=== PATIENT | female | born 1995 | race Caucasian/White ===

== ENCOUNTER 2016-09-27 13:56 | Emergency (ER) | payer MEDICAID ==
[2016-09-27] MEDS ORDERED: Sodium Chloride 0.9% 1,000 ML IV ONE (14:57)
[2016-09-27] MEDS ORDERED: Sodium Chloride 0.9% 2.5 ML Syringe FLUSH PRN (14:58)
[2016-09-27] MEDS ORDERED: Sodium Chloride 0.9% 10 ML Syringe FLUSH PRN (14:58)
--- NOTE | 2016-09-27 15:10 | EDM.PDOC ---
ED HPI GI/ABDOMINAL - General Chief Complaint: Abdominal Pain Stated Complaint: LOWER ABD PAIN Time Seen by Provider: 09/27/16 14:07 Source of Information: Reports: Patient History Limitations: Reports: No limitations - History of Present Illness INITIAL COMMENTS - FREE TEXT/NARRATIVE: History of present illness: [] Patient's had a 4 to five-day history of nonradiating sharp and dull right lower quadrant pain. Patient denies any fevers, chills, nausea, vomiting or diarrhea. Review of systems: As per history of present illness and below otherwise all systems reviewed and negative. Past medical history: As per history of present illness and as reviewed below otherwise noncontributory. Surgical history: As per history of present illness and as reviewed below otherwise noncontributory. Social history: No reported history of drug or alcohol abuse. Family history: As per history of present illness and as reviewed below otherwise noncontributory. Physical exam: General: Well developed, well nourished in NAD HEENT: Atraumatic, normocephalic, pupils reactive, negative for conjunctival pallor or scleral icterus, mucous membranes moist, throat clear, neck supple, nontender, trachea midline. Lungs: Clear to auscultation, breath sounds equal bilaterally, chest nontender. Heart: S1S2, regular, negative for clicks, rubs, or JVD. Abdomen: Soft, nondistended, tender right lower quadrant without rebound or guarding. Negative for masses or hepatosplenomegaly. Negative for costovertebral tenderness. Pelvis: Stable nontender. Genitourinary: Deferred. Rectal: Deferred. Extremities: Atraumatic, negative for cords or calf pain. Neurovascular unremarkable. Neuro: Awake, alert, oriented. Cranial nerves II through XII unremarkable. Cerebellum unremarkable. Motor and sensory unremarkable throughout. Exam nonfocal. Diagnostics: [] Labs and CT done were negative Therapeutics: [] Impression: [] Abdominal pain NOS Plan: [] Tylenol or Motrin for pain warm packs to abdomen followup with regular doctor return if symptoms worsen or change Definitive disposition and diagnosis as appropriate pending reevaluation and review of above. 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: - Past Surgical History HEENT Surgical History: Reports: Adenoidectomy, Tonsillectomy Social & Family History - Family History Family Medical History: Noncontributory Endocrine/Metabolic: Reports: Diabetes, type II Oncologic: Reports: Breast, Cervix, Other (see below) Other Oncologic Family History: unknown - Tobacco Use Smoking Status *Q: Never Smoker Second Hand Smoke Exposure: Yes - Alcohol Use Days Per Week of Alcohol Use: 0 - Recreational Drug Use Recreational Drug Use: No ED ROS GENERAL - Review of Systems Review Of Systems: See Below (See history of present illness) ED EXAM, GI/ABD - Physical Exam Exam: See Below (See history of present illness) Course - Vital Signs Last Recorded V/S: Last Vital Signs Temp 36.6 C 09/27/16 14:44 Pulse 88 09/27/16 14:44 Resp 18 09/27/16 14:44 BP 105/76 09/27/16 14:44 Pulse Ox 98 09/27/16 14:44 - Orders/Labs/Meds Orders: Active Orders 24 hr Category Date Time Status Nothing Per Oral Diet [DIET] Diet 09/27/16 Dinner Active Abdomen Pelvis w Cont [CT] Stat Exams 09/27/16 15:46 Taken Sodium Chloride 0.9% [Saline Flush] Med 09/27/16 14:58 Active 10 ml FLUSH ASDIRECTED PRN Sodium Chloride 0.9% [Saline Flush] Med 09/27/16 14:58 Active 2.5 ml FLUSH ASDIRECTED PRN Peripheral IV Insertion Adult [OM.PC] Stat Oth 09/27/16 14:57 Ordered Medication Orders Sodium Chloride (Saline Flush) 10 ml FLUSH ASDIRECTED PRN PRN Reason: Keep Vein Open Last Admin: 09/27/16 15:13 Dose: 10 ml Sodium Chloride (Saline Flush) 2.5 ml FLUSH ASDIRECTED PRN PRN Reason: Keep Vein Open Last Admin: 09/27/16 15:13 Dose: 2.5 ml Labs: Laboratory Tests 09/27/16 09/27/16 09/27/16 Range/Units 15:00 15:00 15:05 WBC 9.45 (4.0-11.0) K/uL RBC 4.80 (4.30-5.90) M/uL Hgb 14.2 (12.0-16.0) g/dL Hct 42.4 (36.0-46.0) % MCV 88.3 (80.0-98.0) fL MCH 29.6 (27.0-32.0) pg MCHC 33.5 (31.0-37.0) g/dL RDW Std Deviation 41.6 (28.0-62.0) fl RDW Coeff of Damari 13 (11.0-15.0) % Plt Count 249 (150-400) K/uL MPV 10.70 (7.40-12.00) fL Neut % (Auto) 59.9 (48.0-80.0) % Lymph % (Auto) 33.1 (16.0-40.0) % [place] % (Auto) 6.0 (0.0-15.0) % Eos % (Auto) 0.8 (0.0-7.0) % Baso % (Auto) 0.2 (0.0-1.5) % Neut # (Auto) 5.7 (1.4-5.7) K/uL Lymph # (Auto) 3.1 H (0.6-2.4) K/uL [place] # (Auto) 0.6 (0.0-0.8) K/uL Eos # (Auto) 0.1 (0.0-0.7) K/uL Baso # (Auto) 0.0 (0.0-0.1) K/uL Nucleated RBC % 0.0 /100WBC Nucleated RBCs # 0 K/uL Sodium (136-146) mmol/L Potassium (3.5-5.1) mmol/L Chloride (98-110) mmol/L Carbon Dioxide (21-31) mmol/L BUN (6.0-23.0) mg/dL Creatinine (0.6-1.5) mg/dL Est Cr Clr Drug Dosing mL/min Estimated GFR (MDRD) ml/min Glucose (60-110) mg/dL Calcium (8.8-10.8) mg/dL Total Bilirubin (0.1-1.5) mg/dL AST (5-40) IU/L ALT (8-54) IU/L Alkaline Phosphatase (40-150) Total Protein (6.0-8.0) g/dL Albumin (3.5-5.0) g/dL Globulin (2.0-3.5) g/dL Albumin/Globulin Ratio (1.3-2.8) Lipase (7-80) U/L Urine Color YELLOW Urine Appearance CLEAR Urine pH 7.5 (5.0-8.0) Ur Specific [place] 1.015 (1.001-1.035) Urine Protein NEGATIVE (NEGATIVE) mg/dL Urine Glucose (UA) NEGATIVE (NEGATIVE) mg/dL Urine Ketones NEGATIVE (NEGATIVE) mg/dL Urine Occult Blood NEGATIVE (NEGATIVE) Urine Nitrite NEGATIVE (NEGATIVE) Urine Bilirubin NEGATIVE (NEGATIVE) Urine Urobilinogen 0.2 (<2.0) EU/dL Ur Leukocyte Esterase TRACE (NEGATIVE) Urine RBC 0-1 (0-2/HPF) Urine WBC 2-3 (0-5/HPF) Ur Epithelial Cells FEW (NONE-FEW) Urine Bacteria FEW (NEGATIVE) Urine HCG, Qual NEGATIVE (NEGATIVE) 09/27/16 Range/Units 15:05 WBC (4.0-11.0) K/uL RBC (4.30-5.90) M/uL Hgb (12.0-16.0) g/dL Hct (36.0-46.0) % MCV (80.0-98.0) fL MCH (27.0-32.0) pg MCHC (31.0-37.0) g/dL RDW Std Deviation (28.0-62.0) fl RDW Coeff of Damari (11.0-15.0) % Plt Count (150-400) K/uL MPV (7.40-12.00) fL Neut % (Auto) (48.0-80.0) % Lymph % (Auto) (16.0-40.0) % [place] % (Auto) (0.0-15.0) % Eos % (Auto) (0.0-7.0) % Baso % (Auto) (0.0-1.5) % Neut # (Auto) (1.4-5.7) K/uL Lymph # (Auto) (0.6-2.4) K/uL [place] # (Auto) (0.0-0.8) K/uL Eos # (Auto) (0.0-0.7) K/uL Baso # (Auto) (0.0-0.1) K/uL Nucleated RBC % /100WBC Nucleated RBCs # K/uL Sodium 140 (136-146) mmol/L Potassium 4.0 (3.5-5.1) mmol/L Chloride 106 (98-110) mmol/L Carbon Dioxide 24 (21-31) mmol/L BUN 10 (6.0-23.0) mg/dL Creatinine 0.8 (0.6-1.5) mg/dL Est Cr Clr Drug Dosing 100.94 mL/min Estimated GFR (MDRD) > 60.0 ml/min Glucose 92 (60-110) mg/dL Calcium 9.5 (8.8-10.8) mg/dL Total Bilirubin 0.4 (0.1-1.5) mg/dL AST 34 (5-40) IU/L ALT 40 (8-54) IU/L Alkaline Phosphatase 87 (40-150) Total Protein 7.6 (6.0-8.0) g/dL Albumin 4.1 (3.5-5.0) g/dL Globulin 3.5 (2.0-3.5) g/dL Albumin/Globulin Ratio 1.2 L (1.3-2.8) Lipase 24 (7-80) U/L Urine Color Urine Appearance Urine pH (5.0-8.0) Ur Specific [place] (1.001-1.035) Urine Protein (NEGATIVE) mg/dL Urine Glucose (UA) (NEGATIVE) mg/dL Urine Ketones (NEGATIVE) mg/dL Urine Occult Blood (NEGATIVE) Urine Nitrite (NEGATIVE) Urine Bilirubin (NEGATIVE) Urine Urobilinogen (<2.0) EU/dL Ur Leukocyte Esterase (NEGATIVE) Urine RBC (0-2/HPF) Urine WBC (0-5/HPF) Ur Epithelial Cells (NONE-FEW) Urine Bacteria (NEGATIVE) Urine HCG, Qual (NEGATIVE) Meds: Medications Generic Name Dose Route Start Last Admin Trade Name Freq PRN Reason Stop Dose Admin Sodium Chloride 10 ml 09/27/16 14:58 09/27/16 15:13 Saline Flush FLUSH 10 ml ASDIRECTED PRN Administration Keep Vein Open Sodium Chloride 2.5 ml 09/27/16 14:58 09/27/16 15:13 Saline Flush FLUSH 2.5 ml ASDIRECTED PRN Administration Keep Vein Open Discontinued Medications Generic Name Dose Route Start Last Admin Trade Name Osmani PRN Reason Stop Dose Admin Sodium Chloride 1,000 mls @ 999 mls/hr 09/27/16 14:57 09/27/16 15:13 Normal Saline IV 09/27/16 15:57 999 mls/hr .Bolus ONE Administration Iopamidol 100 ml 09/27/16 15:51 09/27/16 15:54 Isovue Multipack-370 (76%) IVPUSH 09/27/16 15:52 100 ml ONETIME STA Administration Departure - Departure Time of Disposition: 16:47 Disposition: Home, Self-Care 01 Condition: good Clinical Impression: Abdominal pain Qualifiers: Abdominal location: right lower quadrant Qualified Code(s): R10.31 - Right lower quadrant pain Forms: ED Department Discharge Additional Instructions: The following information is given to patients seen in the emergency department who are being discharged to home. This information is to outline your options for follow-up care. We provide all patients seen in our emergency department with a follow-up referral. The need for follow-up, as well as the timing and circumstances, are variable depending upon the specifics of your emergency department visit. If you don't have a primary care physician on staff, we will provide you with a referral. We always advise you to contact your personal physician following an emergency department visit to inform them of the circumstance of the visit and for follow-up with them and/or the need for any referrals to a consulting specialist. The emergency department will also refer you to a specialist when appropriate. This referral assures that you have the opportunity for follow-up care with a specialist. All of these measure are taken in an effort to provide you with optimal care, which includes your follow-up. Under all circumstances we always encourage you to contact your private physician who remains a resource for coordinating your care. When calling for follow-up care, please make the office aware that this follow-up is from your recent emergency room visit. If for any reason you are refused follow-up, please contact the [facility] Emergency Department at and asked to speak to the emergency department charge nurse. Tylenol or Motrin for pain return if symptoms worsen or change follow up with your regular doctor next week [facility] [address] [place] [id number] - My Orders Last 24 Hours: My Active Orders 09/27/16 14:57 Peripheral IV Insertion Adult [OM.PC] Stat 09/27/16 14:58 Sodium Chloride 0.9% [Saline Flush] 10 ml FLUSH ASDIRECTED PRN Sodium Chloride 0.9% [Saline Flush] 2.5 ml FLUSH ASDIRECTED PRN 09/27/16 15:46 Abdomen Pelvis w Cont [CT] Stat 09/27/16 Dinner Nothing Per Oral Diet [DIET] - Assessment/Plan Last 24 Hours: My Active Orders 09/27/16 14:57 Peripheral IV Insertion Adult [OM.PC] Stat 09/27/16 14:58 Sodium Chloride 0.9% [Saline Flush] 10 ml FLUSH ASDIRECTED PRN Sodium Chloride 0.9% [Saline Flush] 2.5 ml FLUSH ASDIRECTED PRN 09/27/16 15:46 Abdomen Pelvis w Cont [CT] Stat 09/27/16 Dinner Nothing Per Oral Diet [DIET]
[2016-09-27 15:34] LABS: CHLORIDE,CL 106 mmol/L (98-110); SODIUM,NA 140 mmol/L (136-146)
[2016-09-27] MEDS ORDERED: Iopamidol 755 MG/ML 500 ML Multipack Bottle IVPUSH STA (15:51)
[2016-09-27 17:00] VITALS: BP 109/71
--- NOTE | 2016-09-30 09:37 | CT ---
EXAM DATE: 09/27/16 PATIENT'S AGE: 21 Patient: DIEGO SILVER Facility: [place], [place] Site . Site : 1995 Study: CT Abdomen/Pelvis [id number]/14/2017 4:18:29 PM Ordering Physician: Thien Omer Final Report: INDICATION: RLQ PAIN X [address] ABDOMEN AND PELVIS WITH CONTRAST TECHNIQUE: Multidetector CT imaging was performed through the abdomen and pelvis following intravenous contrast administration using 100 mL Isovue 370. Coronal and sagittal reconstructions were generated. COMPARISON: None. FINDINGS: Lower chest: Lung bases are clear. Liver: Within normal limits. Gallbladder and bile ducts: No gallbladder wall thickening or calcified gallstones. No biliary dilation identified. Pancreas: Unremarkable. Spleen: Normal. Adrenals: No nodules or masses. Kidneys, ureters, and urinary bladder: No renal masses or hydronephrosis. No bladder mass or definite wall thickening. Gastrointestinal tract: Normal caliber bowel without obstruction or definite wall thickening. The appendix is normal. Vascular structures: Normal for age. Peritoneum: Minimal free fluid in the lower pelvis, most likely physiologic. No free air identified in the abdomen or pelvis. Lymph nodes: No pathologically enlarged nodes identified. Reproductive organs: No pelvic masses. Bones: Unremarkable aside from chronic bilateral pars defects of L5, without spondylolisthesis. IMPRESSION: 1. No definite acute abnormality identified. No cause for the patient`s symptoms is demonstrated. 2. Minimal free fluid in the lower pelvis, likely physiologic. BLAIR GIRALDO MD [employer] Dictated by Babatunde Giraldo MD @ 09/27/2016 4:30:45 PM Dictated by: Babatunde Giraldo MD @ 09/27/2016 16:31:27 (Electronic Signature) Report Signed by Proxy and Original Signed Document filed in the Medical Record. [facility]
== END 2016-09-27 16:59 | disposition home or self-care (01) ==
LOC: MW.ED 13:56
DX: R10.31 Right lower quadrant pain (principal); Z98.890 Other specified postprocedural states
CPT/HCPCS: 36415; 74177; 80053; 81001; 81025; 83690; 85025; 96360; 99284; J7040; Q9967; 99283

== ENCOUNTER 2017-11-30 21:26 | Inpatient (IN) | payer BC ==
[2017-11-30] MEDS ORDERED: Butorphanol 1 MG/ML SDV IVPUSH PRN (23:18)
[2017-11-30] MEDS ORDERED: Sodium Chloride 0.9% 2.5 ML Syringe FLUSH PRN (23:18)
[2017-11-30] MEDS ORDERED: Tranexamic Acid 1,000 MG in Sodium Chloride 0.9% 100 ML IV PRN (23:18)
[2017-11-30] MEDS ORDERED: Misoprostol 200 MCG Tab PO PRN (23:18)
[2017-11-30] MEDS ORDERED: Lidocaine 1% 50 ML MDV INJECT PRN (23:18)
[2017-11-30] MEDS ORDERED: Water For Irrigation,Sterile 1,000 ML Container IRR PRN (23:18)
[2017-11-30] MEDS ORDERED: Methylergonovine 0.2 MG/1 ML Amp IM PRN (23:18)
[2017-11-30] MEDS ORDERED: Carboprost Tromethamine 250 MCG/1 ML Amp IM PRN (23:18)
[2017-11-30] MEDS ORDERED: Nalbuphine 10 MG/1 ML Vial IVPUSH PRN (23:18)
[2017-11-30] MEDS ORDERED: Sodium Chloride 0.9% 10 ML Syringe FLUSH PRN (23:18)
[2017-11-30] MEDS ORDERED: Oxytocin/0.9 % Sodium Chloride 30 UNIT/500 ML BAG IV SCH (23:30)
[2017-12-01] MEDS: Lactated Ringers 1,000 ML IV SCH ×2 (00:27→01:35)
[2017-12-01] MEDS ORDERED: Ropivacaine HCl/PF 100 ML ONE (01:07)
[2017-12-01] MEDS ORDERED: fentaNYL 100 MCG/2 ML SDV ONE (01:07)
--- NOTE | 2017-12-01 01:34 | PCM.PREANE ---
Preanesthetic Assessment - Anesthesia/Transfusion/Family Hx Anesthesia History: Prior Anesthesia Without Reaction Family History of Anesthesia Reaction: No Transfusion History: No Prior Transfusion(s) - Physical Assessment Height: 1.65 m Weight: 90.718 kg ASA Class: 1 Mental Status: Alert & Oriented x3 Dentition: Reports: Normal Dentition ROM/Head Extension: Full Cardiovascular: Regular Rate - Lab Values: Laboratory Last Values WBC 12.68 K/uL (4.0-11.0) H 12/01/17 00:13 RBC 3.91 M/uL (4.30-5.90) L 12/01/17 00:13 Hgb 10.8 g/dL (12.0-16.0) L 12/01/17 00:13 Hct 32.9 % (36.0-46.0) L 12/01/17 00:13 MCV 84.1 fL (80.0-98.0) 12/01/17 00:13 MCH 27.6 pg (27.0-32.0) 12/01/17 00:13 MCHC 32.8 g/dL (31.0-37.0) 12/01/17 00:13 RDW Std Deviation 39.9 fl (28.0-62.0) 12/01/17 00:13 RDW Coeff of Damari 13 % (11.0-15.0) 12/01/17 00:13 Plt Count 204 K/uL (150-400) 12/01/17 00:13 MPV 11.00 fL (7.40-12.00) 12/01/17 00:13 Nucleated RBC % 0.0 /100WBC 12/01/17 00:13 Nucleated RBCs # 0 K/uL 12/01/17 00:13 Blood Type AB POSITIVE 12/01/17 00:13 Antibody Screen NEGATIVE 12/01/17 00:13 - Allergies Allergies/Adverse Reactions: Allergies Allergy/AdvReac Type Severity Reaction Status Date / Time No Known Allergies Allergy Verified 11/20/17 09:55 - Acknowledgements Anesthesia Type Planned: Epidural Pt an Appropriate Candidate for the Planned Anesthesia: Yes Alternatives and Risks of Anesthesia Discussed w Pt/Guardian: Yes Pt/Guardian Understands and Agrees with Anesthesia Plan: Yes PreAnesthesia Questionnaire - Past Health History Medical/Surgical History: Denies Medical/Surgical History Cardiovascular History: Reports: Heart Murmur Other Cardiovascular History: As a child but has since resolved. 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 HEENT Surgical History: Reports: Adenoidectomy, Tonsillectomy - SUBSTANCE USE Smoking Status *Q: Former Smoker Tobacco Use Within Last Twelve Months: No Second Hand Smoke Exposure: No Recreational Drug Use History: No - HOME MEDS Home Medications: Home Meds Levothyroxine [Synthroid] 88 mcg PO ACBREAKFAST 09/27/16 [History] PNV95/Ferrous Fumarate/FA [ Tablet] 1 tab PO DAILY 11/20/17 [History] - CURRENT (IN HOUSE) MEDS Current Meds: Current Medications Butorphanol Tartrate (Stadol) 1 mg IVPUSH Q1H PRN PRN Reason: Pain Last Admin: 12/01/17 01:04 Dose: 1 mg Carboprost Tromethamine (Hemabate Ds) 250 mcg IM ASDIRECTED PRN PRN Reason: Post Hemorrhage Tranexamic Acid 1,000 mg/ (Sodium Chloride) 110 mls @ 660 mls/hr IV ONETIME PRN PRN Reason: Bleeding Lactated Ringer's (Ringers, Lactated) 1,000 mls @ 150 mls/hr IV ASDIRECTED DONATO Last Admin: 12/01/17 00:27 Dose: 500 mls/hr Oxytocin/Sodium Chloride (Oxytocin 30 Unit/500 Ml-Ns) 30 unit in 500 mls @ 999 mls/hr IV TITRATE DONATO Lidocaine HCl (Xylocaine 1%) 50 ml INJECT .ONCE PRN PRN Reason: Laceration repair Methylergonovine Maleate (Methergine) 0.2 mg IM ASDIRECTED PRN PRN Reason: Post Hemorrhage Misoprostol (Cytotec) 200 mcg PO .ONCE PRN PRN Reason: Post Hemorrhage Nalbuphine HCl (Nubain) 10 mg IVPUSH Q1H PRN PRN Reason: Pain (severe 7-10) Sodium Chloride (Saline Flush) 10 ml FLUSH ASDIRECTED PRN PRN Reason: Keep Vein Open Sodium Chloride (Saline Flush) 2.5 ml FLUSH ASDIRECTED PRN PRN Reason: Keep Vein Open Sterile Water (Sterile Water For Irrigation) 1,000 ml IRR ASDIRECTED PRN PRN Reason: delivery Discontinued Medications Fentanyl (Sublimaze) Confirm Administered Dose 100 mcg .ROUTE .STK-MED ONE Stop: 12/01/17 01:08 Ropivacaine (Naropin 0.2%) Confirm Administered Dose 100 mls @ as directed .ROUTE .STK-MED ONE Stop: 12/01/17 01:08
--- NOTE | 2017-12-01 01:37 | PCM.PRNOTE ---
- Free Text/Narrative Note: Anes Note Patient requests epidural for L&D. Risks and methods were discussed. Sitting Position. Sterile technique. Bet prep X 3 Level L2-L3. Midline Approach. Single attempt. Epidural space located at 5 cm using VALERIE technique. Cathreaded 4 cm with ease. Sterile dressing applied. Cath placed at 9 cm at skin. Farhan well. Test dose negative. Loading dose given slowly in incremental doses. Patient reports excellent analgesia. Ernst Collazo CRNA
[2017-12-01] MEDS ORDERED: Bisacodyl 10 MG Supp RECTAL PRN (03:43)
[2017-12-01] MEDS ORDERED: Docusate Sodium 100 MG Cap PO PRN (03:43)
[2017-12-01] MEDS ORDERED: Ibuprofen 400 MG Tab PO PRN (03:43)
[2017-12-01] MEDS ORDERED: Witch Hazel Medicated Pads 40/Jar TOP PRN (03:43)
[2017-12-01] MEDS ORDERED: Lanolin 100% Cream 7 GM Tube TOP PRN (03:43)
[2017-12-01] MEDS ORDERED: Acetaminophen 500 MG Tab PO PRN ×2 (03:43)
[2017-12-01] MEDS ORDERED: Benzocaine/Menthol 20%-0.5% Spray 78 GM Cannister TOP PRN (03:43)
[2017-12-01] MEDS ORDERED: oxyCODONE 5 MG Tab PO PRN (03:43)
--- NOTE | 2017-12-01 03:56 | PCM.DEL ---
L & D Note - General Info Date of Service: 12/01/17 - Delivery Note Labor: Spontaneous, Augmented by ARM Delivery Outcome: Livebirth Infant Delivery Mode: Spontaneous Nuchal Cord: Present, Reduced Prep: Other Anesthesia Type: Epidural Amniotic Fluid Description: Meconium Stained Episiotomy Type: None Laceration: None Placenta: Intact, Spontaneous Cord: 3 Vessels Estimated Blood Loss: 150 [place]: Warmed, Warmer Used Score 1 min: 8 Score 5 min: 9 Second Stage Interventions: Reports: Encouragement Given, Pushing Effectively, Pushing, Pulls Own Legs Back - General Info Date of Service: 12/01/17 - Patient Data Weight - Most Recent: 199 lb 15.983 oz Lab Results Last 24 Hours: Laboratory Results - last 24 hr 12/01/17 12/01/17 Range/Units 00:13 00:13 WBC 12.68 H (4.0-11.0) K/uL RBC 3.91 L (4.30-5.90) M/uL Hgb 10.8 L (12.0-16.0) g/dL Hct 32.9 L (36.0-46.0) % MCV 84.1 (80.0-98.0) fL MCH 27.6 (27.0-32.0) pg MCHC 32.8 (31.0-37.0) g/dL RDW Std Deviation 39.9 (28.0-62.0) fl RDW Coeff of Damari 13 (11.0-15.0) % Plt Count 204 (150-400) K/uL MPV 11.00 (7.40-12.00) fL Nucleated RBC % 0.0 /100WBC Nucleated RBCs # 0 K/uL Blood Type AB POSITIVE Antibody Screen NEGATIVE Med Orders - Current: Current Medications Discontinued Medications Butorphanol Tartrate (Stadol) 1 mg IVPUSH Q1H PRN PRN Reason: Pain Last Admin: 12/01/17 01:04 Dose: 1 mg Carboprost Tromethamine (Hemabate Ds) 250 mcg IM ASDIRECTED PRN PRN Reason: Post Hemorrhage Fentanyl (Sublimaze) Confirm Administered Dose 100 mcg .ROUTE .STK-MED ONE Stop: 12/01/17 01:08 Tranexamic Acid 1,000 mg/ (Sodium Chloride) 110 mls @ 660 mls/hr IV ONETIME PRN PRN Reason: Bleeding Lactated Ringer's (Ringers, Lactated) 1,000 mls @ 150 mls/hr IV ASDIRECTED [facility] Last Admin: 12/01/17 01:35 Dose: 500 mls/hr Oxytocin/Sodium Chloride (Oxytocin 30 Unit/500 Ml-Ns) 30 unit in 500 mls @ 999 mls/hr IV TITRATE [facility] Ropivacaine (Naropin 0.2%) Confirm Administered Dose 100 mls @ as directed .ROUTE .K-MED ONE Stop: 12/01/17 01:08 Lidocaine HCl (Xylocaine 1%) 50 ml INJECT .ONCE PRN PRN Reason: Laceration repair Methylergonovine Maleate (Methergine) 0.2 mg IM ASDIRECTED PRN PRN Reason: Post Hemorrhage Misoprostol (Cytotec) 200 mcg PO .ONCE PRN PRN Reason: Post Hemorrhage Nalbuphine HCl (Nubain) 10 mg IVPUSH Q1H PRN PRN Reason: Pain (severe 7-10) Sodium Chloride (Saline Flush) 10 ml FLUSH ASDIRECTED PRN PRN Reason: Keep Vein Open Sodium Chloride (Saline Flush) 2.5 ml FLUSH ASDIRECTED PRN PRN Reason: Keep Vein Open Sterile Water (Sterile Water For Irrigation) 1,000 ml IRR ASDIRECTED PRN PRN Reason: delivery - Problem List & Annotations (1) Vaginal delivery SNOMED Code(s): 543423424 Code(s): O80 - ENCOUNTER FOR FULL-TERM UNCOMPLICATED DELIVERY Status: Acute Current Visit: No - Problem List Review Problem List Initiated/Reviewed/Updated: Yes - My Orders Last 24 Hours: My Active Orders 11/30/17 22:50 Up ad Tiffany [RC] ASDIRECTED Vital Signs [RC] PER UNIT ROUTINE 11/30/17 23:18 May Shower [RC] ASDIRECTED Notify Provider [RC] PRN 12/01/17 03:32 BLOOD GAS ARTERIAL UMBILICAL [BG] Timed BLOOD GAS VENOUS UMBILICAL [BG] Timed 12/01/17 03:43 Patient Status [ADT] Routine May Shower [RC] ASDIRECTED Up ad Tiffany [RC] ASDIRECTED Vital Signs [RC] PER UNIT ROUTINE Acetaminophen [Tylenol Extra Strength] 1,000 mg PO Q4H PRN Acetaminophen [Tylenol Extra Strength] 500 mg PO Q4H PRN Benzocaine/Menthol [Dermoplast Pain Relief 20%-0.5% [place]] 78 gm TOP ASDIRECTED PRN Bisacodyl [Dulcolax] 10 mg RECTAL .ONCE PRN Docusate Sodium [Colace] 100 mg PO BID PRN Ibuprofen [Motrin] 400 mg PO Q4H PRN Ibuprofen [Motrin] 800 mg PO Q6H PRN Lanolin [Lansinoh HPA] See Dose Instructions TOP ASDIRECTED PRN Witch Ale [Tucks] 1 pad TOP ASDIRECTED PRN oxyCODONE 5 mg PO Q2H PRN Assess Lochia [WOMSER] Per Unit Routine Assess Uterine Involution [WOMSER] Per Unit Routine Breast Pump [WOMSER] Per Unit Routine Peripheral IV Discontinue [OM.PC] Routine Resuscitation Status Routine 12/01/17 03:44 Perineal Care [OM.PC] Per Unit Routine 12/01/17 Breakfast Regular Diet [DIET] 12/02/17 05:11 HEMOGLOBIN/HEMATOCRIT,HH [HEME] Timed
--- NOTE | 2017-12-01 05:05 | OR ---
SURGEON: Shalonda Braden MD DATE OF PROCEDURE: 12/01/2017 PREOPERATIVE DIAGNOSES: 1. Term at 38 weeks' gestation. 2. Spontaneous labor. POSTOPERATIVE DIAGNOSES: 1. Term at 38 weeks' gestation. 2. Spontaneous labor. 3. Delivered. PROCEDURE: Spontaneous vaginal delivery. ANESTHESIA: Epidural. ESTIMATED BLOOD LOSS: 150 mL. COMPLICATIONS: None. DISPOSITION: Mother and baby stable in Labor and delivery room, bonding. FINDINGS: Male , weight 3580 g, Apgars score 8 and 9 at one and five minutes respectively. Grossly normal placenta with 3-vessel cord. Intact perineum. PROCEDURE IN DETAIL: The patient is a 22-year-old G2, P1, who presented to Labor and delivery at about 9:00 p.m. on November 30 at 37 weeks and 6 days' gestation with a history of regular contractions for few hours,denied vaginal bleeding,leakage of fluid, and reported an active fetus. care was complicated by hypothyroidism. GBS negative. On admission, she was found to be 3 cm dilated, intact, and leandro every 4 to 5 minutes. She was allowed to ambulate and was reexamined 2 hours later and was found to have a cervical change to 5 cm. She was then admitted about an hour later she complained of leakage of fluid, spontaneous rupture of membrane, was confirmed, with meconium-stained amniotic fluid noted. She requested and received epidural for pain management. I reexamined her after placement of the epidural and ruptured a forebag. She progressed and became fully dilated within the next 2 hours and with strong urge to push, she was set up for delivery in modified dorsal lithotomy position. heart tracing was category 1. She had a spontaneous vaginal delivery of a live male in right occipital anterior position, loose nuchal cord x1 easily reduced, meconium-stained amniotic fluid at delivery. Anterior and posterior shoulders and the rest of the baby were delivered without difficulty. The baby was vigorous and cried spontaneously at . The cord was double clamped and cut and the infant was handed over to the nursery nurse with Dr. Vick, the telephonic nurse on-call in attendance. With delivery of the , oxytocin infusion was commenced for active management of third stage of labor. Cord blood and gas samples were obtained. Placenta was delivered by controlled cord traction, appeared to be complete and intact. Examination of the perineum revealed no lacerations. Uterine massage was performed. The uterus was found to be well contracted at the umbilicus. The patient tolerated the procedure well. Sponge, instrument, and needle counts were correct at the end of the delivery. JENNIFER / DELTA /[id number] MTDD
[2017-12-01] MEDS: Ibuprofen 800 MG Tab PO PRN ×3 (07:51→20:53)
--- NOTE | 2017-12-01 16:26 | PCM48HPAN ---
Post Anesthesia Note - EVALUATION WITHIN 48HRS OF ANESTHETIC Vital Signs in Normal Range: Yes Patient Participated in Evaluation: Yes Respiratory Function Stable: Yes Airway Patent: Yes Cardiovascular Function Stable: Yes Hydration Status Stable: Yes Pain Control Satisfactory: Yes Nausea and Vomiting Control Satisfactory: Yes Mental Status Recovered: Yes Resp Rate: 20
[2017-12-02] MEDS: Ibuprofen 800 MG Tab PO PRN (03:16)
--- NOTE | 2017-12-02 08:00 | PCM.PNPP ---
<Talisha Madison - Last Filed: 12/02/17 07:56> - General Info Date of Service: 12/02/17 Functional Status: Reports: Pain Controlled, Tolerating Diet, Ambulating, Urinating - Review of Systems General: Denies: Fever, Weakness, Fatigue Pulmonary: Denies: Shortness of Breath, Pleuritic Chest Pain, Cough Cardiovascular: Denies: Chest Pain, Palpitations, Dyspnea on Exertion Gastrointestinal: Denies: Abdominal Pain Genitourinary: Denies: Dysuria - General Info Date of Service: 12/02/17 - Patient Data Vital Signs - Most Recent: Last Vital Signs Temp 36.5 C 12/02/17 04:00 Pulse 53 L 12/02/17 04:00 Resp 18 12/02/17 04:00 BP 121/77 12/02/17 04:00 Pulse Ox 98 12/02/17 04:00 Weight - Most Recent: 90.718 kg Lab Results - Last 24 Hours: Laboratory Results - last 24 hr 12/02/17 Range/Units 05:20 Hgb 9.8 L (12.0-16.0) g/dL Hct 30.4 L (36.0-46.0) % Med Orders - Current: Current Medications Acetaminophen (Tylenol Extra Strength) 500 mg PO Q4H PRN PRN Reason: Pain Acetaminophen (Tylenol Extra Strength) 1,000 mg PO Q4H PRN PRN Reason: Pain Benzocaine/Menthol (Dermoplast Pain Relief 20%-0.5% [place]) 78 gm TOP ASDIRECTED PRN PRN Reason: Perineal Comfort Measure Bisacodyl (Dulcolax) 10 mg RECTAL .ONCE PRN PRN Reason: Constipation Docusate Sodium (Colace) 100 mg PO BID PRN PRN Reason: Constipation Last Admin: 12/01/17 20:53 Dose: 100 mg Emollient Ointment (Lansinoh Hpa) 0 gm TOP ASDIRECTED PRN PRN Reason: Sore Nipples Ibuprofen (Motrin) 400 mg PO Q4H PRN PRN Reason: Pain Ibuprofen (Motrin) 800 mg PO Q6H PRN PRN Reason: Pain Last Admin: 12/02/17 03:16 Dose: 800 mg Oxycodone HCl (Oxycodone) 5 mg PO Q2H PRN PRN Reason: Pain Witch Ael (Tucks) 1 pad TOP ASDIRECTED PRN PRN Reason: comfort care Discontinued Medications Butorphanol Tartrate (Stadol) 1 mg IVPUSH Q1H PRN PRN Reason: Pain Last Admin: 12/01/17 01:04 Dose: 1 mg Carboprost Tromethamine (Hemabate Ds) 250 mcg IM ASDIRECTED PRN PRN Reason: Post Hemorrhage Fentanyl (Sublimaze) Confirm Administered Dose 100 mcg .ROUTE .STK-MED ONE Stop: 12/01/17 01:08 Tranexamic Acid 1,000 mg/ (Sodium Chloride) 110 mls @ 660 mls/hr IV ONETIME PRN PRN Reason: Bleeding Lactated Ringer's (Ringers, Lactated) 1,000 mls @ 150 mls/hr IV ASDIRECTED DONATO Last Admin: 12/01/17 01:35 Dose: 500 mls/hr Oxytocin/Sodium Chloride (Oxytocin 30 Unit/500 Ml-Ns) 30 unit in 500 mls @ 999 mls/hr IV TITRATE DONATO Ropivacaine (Naropin 0.2%) Confirm Administered Dose 100 mls @ as directed .ROUTE .[employer]-MED ONE Stop: 12/01/17 01:08 Lidocaine HCl (Xylocaine 1%) 50 ml INJECT .ONCE PRN PRN Reason: Laceration repair Methylergonovine Maleate (Methergine) 0.2 mg IM ASDIRECTED PRN PRN Reason: Post Hemorrhage Misoprostol (Cytotec) 200 mcg PO .ONCE PRN PRN Reason: Post Hemorrhage Nalbuphine HCl (Nubain) 10 mg IVPUSH Q1H PRN PRN Reason: Pain (severe 7-10) Sodium Chloride (Saline Flush) 10 ml FLUSH ASDIRECTED PRN PRN Reason: Keep Vein Open Sodium Chloride (Saline Flush) 2.5 ml FLUSH ASDIRECTED PRN PRN Reason: Keep Vein Open Sterile Water (Sterile Water For Irrigation) 1,000 ml IRR ASDIRECTED PRN PRN Reason: delivery - Infant Interaction Disposition, : [place] in Room with Family Infant Interaction: Holding Infant Feeding: Bottle Fed Support Person: - Recovery Exam Fundal Tone: Firm Fundal Level: At Umbilicus Fundal Placement: Midline Lochia Amount: Scant, Small Lochia Color: Rubra/Red Perineum Description: Intact, Minimal Bruising/Swelling Episiotomy/Laceration: None Bladder Status: Nonpalpable, Voiding - Exam General: Alert, Oriented Neck: Supple Lungs: Clear to Auscultation, Normal Respiratory Effort Cardiovascular: Regular Rate, Regular Rhythm GI/Abdominal Exam: Normal Bowel Sounds, Soft, No Distention Extremities: Normal Inspection, Normal Capillary Refill, Pedal Edema (trace) Skin: Warm, Dry, Intact Psy/Mental Status: Alert - Problem List Review Problem List Initiated/Reviewed/Updated: Yes - Assessment Assessment:: PPD#1 from . Minimal pain and lochia. Breast feeding well. Discharge home today. - Plan Plan:: Discharge instructions reviewed. Pelvic rest for 6 weeks. Can use OTC ibuprofen/ tylenol as needed for pain. Instructed patient to call if she develops fever greater than 101 or bleeding through a large pad an hour. F/U with [facility] in 6 weeks. <Sera Turk - Last Filed: 12/03/17 08:22> - Patient Data Vital Signs - Most Recent: Last Vital Signs Temp 36.7 C 12/02/17 08:05 Pulse 60 12/02/17 08:05 Resp 16 12/02/17 08:05 BP 128/76 12/02/17 08:05 Pulse Ox 98 12/02/17 08:05 Med Orders - Current: Current Medications Discontinued Medications Acetaminophen (Tylenol Extra Strength) 500 mg PO Q4H PRN PRN Reason: Pain Acetaminophen (Tylenol Extra Strength) 1,000 mg PO Q4H PRN PRN Reason: Pain Benzocaine/Menthol (Dermoplast Pain Relief 20%-0.5% [place]) 78 gm TOP ASDIRECTED PRN PRN Reason: Perineal Comfort Measure Bisacodyl (Dulcolax) 10 mg RECTAL .ONCE PRN PRN Reason: Constipation Butorphanol Tartrate (Stadol) 1 mg IVPUSH Q1H PRN PRN Reason: Pain Last Admin: 12/01/17 01:04 Dose: 1 mg Carboprost Tromethamine (Hemabate Ds) 250 mcg IM ASDIRECTED PRN PRN Reason: Post Hemorrhage Docusate Sodium (Colace) 100 mg PO BID PRN PRN Reason: Constipation Last Admin: 12/01/17 20:53 Dose: 100 mg Emollient Ointment (Lansinoh Hpa) 0 gm TOP ASDIRECTED PRN PRN Reason: Sore Nipples Fentanyl (Sublimaze) Confirm Administered Dose 100 mcg .ROUTE .STK-MED ONE Stop: 12/01/17 01:08 Tranexamic Acid 1,000 mg/ (Sodium Chloride) 110 mls @ 660 mls/hr IV ONETIME PRN PRN Reason: Bleeding Lactated Ringer's (Ringers, Lactated) 1,000 mls @ 150 mls/hr IV ASDIRECTED DONATO Last Admin: 12/01/17 01:35 Dose: 500 mls/hr Oxytocin/Sodium Chloride (Oxytocin 30 Unit/500 Ml-Ns) 30 unit in 500 mls @ 999 mls/hr IV TITRATE [facility] Ropivacaine (Naropin 0.2%) Confirm Administered Dose 100 mls @ as directed .ROUTE .[employer]-MED ONE Stop: 12/01/17 01:08 Ibuprofen (Motrin) 400 mg PO Q4H PRN PRN Reason: Pain Ibuprofen (Motrin) 800 mg PO Q6H PRN PRN Reason: Pain Last Admin: 12/02/17 03:16 Dose: 800 mg Lidocaine HCl (Xylocaine 1%) 50 ml INJECT .ONCE PRN PRN Reason: Laceration repair Methylergonovine Maleate (Methergine) 0.2 mg IM ASDIRECTED PRN PRN Reason: Post Hemorrhage Misoprostol (Cytotec) 200 mcg PO .ONCE PRN PRN Reason: Post Hemorrhage Nalbuphine HCl (Nubain) 10 mg IVPUSH Q1H PRN PRN Reason: Pain (severe 7-10) Oxycodone HCl (Oxycodone) 5 mg PO Q2H PRN PRN Reason: Pain Sodium Chloride (Saline Flush) 10 ml FLUSH ASDIRECTED PRN PRN Reason: Keep Vein Open Sodium Chloride (Saline Flush) 2.5 ml FLUSH ASDIRECTED PRN PRN Reason: Keep Vein Open Sterile Water (Sterile Water For Irrigation) 1,000 ml IRR ASDIRECTED PRN PRN Reason: delivery Witch Ale (Tucks) 1 pad TOP ASDIRECTED PRN PRN Reason: comfort care - Plan Plan:: Patient was seen and examined by me on the day of discharge and I agree with above.
[2017-12-02 08:06] VITALS: BP 128/76
== END 2017-12-02 10:15 | disposition home or self-care (01) | DRG 560 ==
LOC: MW.OBCHECK 21:26 → MW.OB 22:14 → MW.OBCHECK 23:11 → MW.OB 23:11 → OBSVTOIN 12-01 03:30 → MW.OB 12-01 09:28
PROVIDERS: ADMIT Obstetrics & Gynecology; ATTEND Obstetrics & Gynecology
PROC: 10E0XZZ Delivery of Products of Conception, External Approach (ICD-10-PCS; principal; 2017-12-01)
DX: O69.81X0 Labor and delivery complicated by cord around neck, without compression, not applicable or unspecified (principal); O77.0 Labor and delivery complicated by meconium in amniotic fluid; Z3A.38 38 weeks gestation of pregnancy; Z37.0 Single live birth
CPT/HCPCS: 36415; 59025; 59409; 82803; 85014; 85018; 85027; 86850; 86900; 86901; A9270-GY; J0595; J2795; J3010; J7120

== ENCOUNTER 2018-01-29 20:12 | Emergency (ER) | payer SELFPAY ==
--- NOTE | 2018-01-29 20:41 | EDM.PDOC ---
ED HPI GENERAL MEDICAL PROBLEM - General Chief Complaint: Genitourinary Problem Stated Complaint: HURT WHEN GOING TO THE BATHROOM Time Seen by Provider: 01/29/18 20:25 Source of Information: Reports: Patient History Limitations: Reports: No Limitations - History of Present Illness INITIAL COMMENTS - FREE TEXT/NARRATIVE: HISTORY AND PHYSICAL: History of present illness: Patient is a 22-year-old female who presents to the emergency room with complaints of pain associated with bowel movement. She states she had a baby vaginally approximately 2 months ago and since that time has had mild pain with bowel movements. The past couple days she has had had increased pain and noted blood in the toilet after having a bowel movement and after wiping. He denies any fever, chills, chest pain, shortness of breath or cough. Denies any abdominal pain, nausea, vomiting or dysuria. She states she has had somewhat of a decreased appetite but is eating and drinking appropriately. Not currently breast-feeding. Review of systems: As per history of present illness and below otherwise all systems reviewed and negative. Past medical history: As per history of present illness and as reviewed below otherwise noncontributory. Surgical history: As per history of present illness and as reviewed below otherwise noncontributory. Social history: No reported history of drug or alcohol abuse. Family history: As per history of present illness and as reviewed below otherwise noncontributory. Physical exam: General: Well-developed and well-nourished 22-year-old female. Alert and oriented. Nontoxic appearing and in no acute distress. HEENT: Atraumatic, normocephalic, pupils equal and reactive bilaterally, negative for conjunctival pallor or scleral icterus, mucous membranes moist, throat clear, neck supple, nontender, trachea midline. No drooling or trismus noted. No meningeal signs Lungs: Clear to auscultation, breath sounds equal bilaterally, chest nontender. Heart: S1S2, regular rate and rhythm without overt murmur Abdomen: Soft, nondistended, nontender. Negative for masses or hepatosplenomegaly. Negative for costovertebral tenderness. Pelvis: Stable nontender. Genitourinary: Deferred. Rectal: This was done with consent and a insurance verification clerk at the bedside. No external hemorrhoids noted. Good rectal tone. Unable to appreciate any internal hemorrhoids. Negative hemmocult stool Skin: Intact, warm, dry. No lesions or rashes noted. Extremities: Atraumatic, negative for cords or calf pain. Neurovascular unremarkable. Neuro: Awake, alert, oriented. Cranial nerves II through XII unremarkable. Cerebellum unremarkable. Motor and sensory unremarkable throughout. Exam nonfocal. Notes: Lab work is unremarkable. No abnormal findings with the abdominal x-ray. Will give her Anusol HC suppositories. Supportive care measures were reviewed and discussed. She denies any further questions or concerns. She will follow-up with her primary care provider and/or the general surgeon for further evaluation and management. Diagnostics: CBC, CMP, UA, HCGU Therapeutics: None Prescription: Anusol HC Suppository (#15) Impression: Rectal pain Plan: 1. Please add Colace, increase your fiber and water to soften your stools. 2. Prescription of Anusol HC suppositories have been given for rectal pain, may use as needed. 3. Your AST/ALT (liver enzymes) were slightly elevated. I would like these rechecked in the next 1-2 weeks with your primary care provider. 4. Follow-up with your primary care provider and/or the general surgeon next week for further evaluation and management. Return to the ED as needed and as discussed. Definitive disposition and diagnosis as appropriate pending reevaluation and review of above. Duration: Day(s): Rectal Pain Score (Numeric/FACES): 2 - Related Data Allergies Allergy/AdvReac Type Severity Reaction Status Date / Time No Known Allergies Allergy Verified 11/20/17 09:55 Home Meds: Home Meds Levothyroxine [Synthroid] 88 mcg PO ACBREAKFAST 09/27/16 [History] PNV95/Ferrous Fumarate/FA [ Tablet] 1 tab PO DAILY 11/20/17 [History] Hydrocortisone Acetate [Anusol-Hc] 25 mg RC QID PRN #15 supp.rect 01/29/18 [Rx] Past Medical History - Past Health History Medical/Surgical History: Denies Medical/Surgical History Cardiovascular History: Reports: Heart Murmur Other Cardiovascular History: As a child but has since resolved. 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 Endocrine/Metabolic: Reports: Diabetes, type II, Other (See Below) Other Endocrine/Metabolic Family History: Mother of patient has unknown thyroid disorder. Oncologic: Reports: Breast, Cervix, Other (See Below) Other Oncologic Family History: Father may have cancer at this time of unknown origin. - Caffeine Use Caffeine Use: Reports: Soda ED ROS GENERAL - Review of Systems Review Of Systems: ROS reveals no pertinent complaints other than HPI. ED EXAM, RENAL/ - Physical Exam Exam: See Below (See dictation) Course - Vital Signs Last Recorded V/S: Last Vital Signs Temp 97.4 F 01/29/18 20:38 Pulse 96 01/29/18 20:38 Resp 18 01/29/18 20:38 BP 128/72 01/29/18 20:38 Pulse Ox 99 01/29/18 20:38 - Orders/Labs/Meds Orders: Active Orders 24 hr Category Date Time Status Abdomen 2V AP Flat Upright [CR] Stat Exams 01/29/18 21:02 Taken UA W/MICROSCOPIC [URIN] Stat Lab 01/29/18 20:20 Ordered Labs: Laboratory Tests 01/29/18 01/29/18 01/29/18 Range/Units 20:20 20:46 20:50 WBC 8.40 (4.0-11.0) K/uL RBC 5.06 (4.30-5.90) M/uL Hgb 13.6 (12.0-16.0) g/dL Hct 40.8 (36.0-46.0) % MCV 80.6 (80.0-98.0) fL MCH 26.9 L (27.0-32.0) pg MCHC 33.3 (31.0-37.0) g/dL RDW Std Deviation 40.6 (28.0-62.0) fl RDW Coeff of Damari 14 (11.0-15.0) % Plt Count 276 (150-400) K/uL MPV 10.10 (7.40-12.00) fL Neut % (Auto) 47.2 L (48.0-80.0) % Lymph % (Auto) 42.5 H (16.0-40.0) % [place] % (Auto) 9.0 (0.0-15.0) % Eos % (Auto) 1.1 (0.0-7.0) % Baso % (Auto) 0.2 (0.0-1.5) % Neut # (Auto) 4.0 (1.4-5.7) K/uL Lymph # (Auto) 3.6 H (0.6-2.4) K/uL [place] # (Auto) 0.8 (0.0-0.8) K/uL Eos # (Auto) 0.1 (0.0-0.7) K/uL Baso # (Auto) 0.0 (0.0-0.1) K/uL Nucleated RBC % 0.0 /100WBC Nucleated RBCs # 0 K/uL Sodium (136-145) mmol/L Potassium (3.5-5.1) mmol/L Chloride (98-107) mmol/L Carbon Dioxide (21.0-32.0) mmol/L BUN (7.0-18.0) mg/dL Creatinine (0.6-1.0) mg/dL Est Cr Clr Drug Dosing mL/min Estimated GFR (MDRD) ml/min Glucose (74-106) mg/dL Calcium (8.5-10.1) mg/dL Total Bilirubin (0.2-1.0) mg/dL AST (15-37) IU/L ALT (14-63) IU/L Alkaline Phosphatase (46-116) U/L Total Protein (6.4-8.2) g/dL Albumin (3.4-5.0) g/dL Globulin (2.0-3.5) g/dL Albumin/Globulin Ratio (1.3-2.8) Urine Color YELLOW Urine Appearance CLEAR Urine pH 6.0 (5.0-8.0) Ur Specific [place] 1.020 (1.001-1.035) Urine Protein NEGATIVE (NEGATIVE) mg/dL Urine Glucose (UA) NEGATIVE (NEGATIVE) mg/dL Urine Ketones NEGATIVE (NEGATIVE) mg/dL Urine Occult Blood SMALL H (NEGATIVE) Urine Nitrite NEGATIVE (NEGATIVE) Urine Bilirubin NEGATIVE (NEGATIVE) Urine Urobilinogen 0.2 (<2.0) EU/dL Ur Leukocyte Esterase NEGATIVE (NEGATIVE) Urine RBC 2-3 (0-2/HPF) Urine WBC 1-2 (0-5/HPF) Ur Epithelial Cells RARE (NONE-FEW) Urine Bacteria RARE (NEGATIVE) Urine HCG, Qual NEGATIVE (NEGATIVE) 01/29/18 Range/Units 20:50 WBC (4.0-11.0) K/uL RBC (4.30-5.90) M/uL Hgb (12.0-16.0) g/dL Hct (36.0-46.0) % MCV (80.0-98.0) fL MCH (27.0-32.0) pg MCHC (31.0-37.0) g/dL RDW Std Deviation (28.0-62.0) fl RDW Coeff of Damari (11.0-15.0) % Plt Count (150-400) K/uL MPV (7.40-12.00) fL Neut % (Auto) (48.0-80.0) % Lymph % (Auto) (16.0-40.0) % [place] % (Auto) (0.0-15.0) % Eos % (Auto) (0.0-7.0) % Baso % (Auto) (0.0-1.5) % Neut # (Auto) (1.4-5.7) K/uL Lymph # (Auto) (0.6-2.4) K/uL [place] # (Auto) (0.0-0.8) K/uL Eos # (Auto) (0.0-0.7) K/uL Baso # (Auto) (0.0-0.1) K/uL Nucleated RBC % /100WBC Nucleated RBCs # K/uL Sodium 139 (136-145) mmol/L Potassium 3.9 (3.5-5.1) mmol/L Chloride 103 (98-107) mmol/L Carbon Dioxide 25.2 (21.0-32.0) mmol/L BUN 14 (7.0-18.0) mg/dL Creatinine 0.7 (0.6-1.0) mg/dL Est Cr Clr Drug Dosing 114.40 mL/min Estimated GFR (MDRD) > 60.0 ml/min Glucose 101 (74-106) mg/dL Calcium 9.6 (8.5-10.1) mg/dL Total Bilirubin 0.2 (0.2-1.0) mg/dL AST 40 H (15-37) IU/L ALT 95 H (14-63) IU/L Alkaline Phosphatase 106 (46-116) U/L Total Protein 7.8 (6.4-8.2) g/dL Albumin 3.8 (3.4-5.0) g/dL Globulin 4.0 H (2.0-3.5) g/dL Albumin/Globulin Ratio 1.0 L (1.3-2.8) Urine Color Urine Appearance Urine pH (5.0-8.0) Ur Specific [place] (1.001-1.035) Urine Protein (NEGATIVE) mg/dL Urine Glucose (UA) (NEGATIVE) mg/dL Urine Ketones (NEGATIVE) mg/dL Urine Occult Blood (NEGATIVE) Urine Nitrite (NEGATIVE) Urine Bilirubin (NEGATIVE) Urine Urobilinogen (<2.0) EU/dL Ur Leukocyte Esterase (NEGATIVE) Urine RBC (0-2/HPF) Urine WBC (0-5/HPF) Ur Epithelial Cells (NONE-FEW) Urine Bacteria (NEGATIVE) Urine HCG, Qual (NEGATIVE) Departure - Departure Time of Disposition: 21:45 Disposition: Home, Self-Care 01 Clinical Impression: Rectal pain - Discharge Information Prescriptions: Hydrocortisone Acetate [Anusol-Hc] 25 mg RC QID PRN #15 supp.rect PRN Reason: Hemorrhoids Instructions: Anal Fissure, Adult, [id number] Referrals: PCP,None [Primary Care Provider] - Forms: ED Department Discharge Additional Instructions: The following information is given to patients seen in the emergency department who are being discharged to home. This information is to outline your options for follow-up care. We provide all patients seen in our emergency department with a follow-up referral. The need for follow-up, as well as the timing and circumstances, are variable depending upon the specifics of your emergency department visit. If you don't have a primary care physician on staff, we will provide you with a referral. We always advise you to contact your personal physician following an emergency department visit to inform them of the circumstance of the visit and for follow-up with them and/or the need for any referrals to a consulting specialist. The emergency department will also refer you to a specialist when appropriate. This referral assures that you have the opportunity for follow-up care with a specialist. All of these measure are taken in an effort to provide you with optimal care, which includes your follow-up. Under all circumstances we always encourage you to contact your private physician who remains a resource for coordinating your care. When calling for follow-up care, please make the office aware that this follow-up is from your recent emergency room visit. If for any reason you are refused follow-up, please contact the [facility] Emergency Department at and asked to speak to the emergency department charge nurse. [facility] [address] [place] [id number] [facility] Specialty Care - General Surgery Professional Building [address] [place] [address], [address] [place] [address] 1. Please add Colace, increase your fiber and water to soften your stools. 2. Prescription of Anusol HC suppositories have been given for rectal pain, may use as needed. 3. Your AST/ALT (liver enzymes) were slightly elevated. I would like these rechecked in the next 1-2 weeks with your primary care provider. 4. Follow-up with your primary care provider and/or the general surgeon next week for further evaluation and management. Return to the ED as needed and as discussed. - My Orders Last 24 Hours: My Active Orders 01/29/18 20:20 UA W/MICROSCOPIC [URIN] Stat 01/29/18 21:02 Abdomen 2V AP Flat Upright [CR] Stat - Assessment/Plan Last 24 Hours: My Active Orders 01/29/18 20:20 UA W/MICROSCOPIC [URIN] Stat 01/29/18 21:02 Abdomen 2V AP Flat Upright [CR] Stat
[2018-01-29 21:29] LABS: CHLORIDE,CL 103 mmol/L (98-107); SODIUM,NA 139 mmol/L (136-145)
[2018-01-29 23:01] VITALS: BP 121/70
--- NOTE | 2018-01-30 15:06 | CR ---
EXAM DATE: 01/29/18 PATIENT'S AGE: 22 Patient: DIEGO SILVER Facility: [place], [place] Site . Site : [id number] Study: XRay Abdomen [id number]/16/2018 9:29:23 PM Ordering Physician: Doctor Loaiza Final Report: INDICATION: Pain with BM, rectal bleeding after BM. Childbirth 2 months ago. ABDOMEN, SUPINE & UPRIGHT VIEWS Supine and upright views of the abdomen were performed. The bowel gas pattern appears normal. No free intraperitoneal air is identified. There is no apparent organomegaly or soft tissue mass. No suspicious calcifications are identified. Visualized bones show no significant findings. IMPRESSION: No acute intra-abdominal abnormality identified. BLAIR GIRALDO MD [employer] Dictated by: Babatunde Giraldo MD @ 01/29/2018 21:39:00 (Electronic Signature) Report Signed by Proxy. PHEL[facility] MEM[facility]IAL HOSPITALBrittany
== END 2018-01-29 22:19 | disposition home or self-care (01) ==
LOC: MW.ED 20:12
DX: K62.89 Other specified diseases of anus and rectum (principal)
CPT/HCPCS: 36415; 74019; 74019-26; 80053; 81001; 81025; 85025; 99283

== ENCOUNTER 2021-01-31 16:40 | Emergency (ER) | payer SELFPAY ==
[2021-01-31 19:35] LABS: BLOOD UREA NITROGEN,BUN 13 mg/dL (7.0-18.0); CARBON DIOXIDE,CO2 23.8 mmol/L (21.0-32.0); CHLORIDE,CL 102 mmol/L (98-107); GLUCOSE RANDOM 82 mg/dL (74-106); POTASSIUM,K 3.8 mmol/L (3.5-5.1); SODIUM,NA 137 mmol/L (136-145)
--- NOTE | 2021-01-31 20:35 | US ---
INDICATION: First trimester scan, pelvic cramping and bleeding. Positive home test. COMPARISON: None. TECHNIQUE: 2D regan-scale imaging of the pelvis was performed. FINDINGS: Sonographic imaging demonstrates thickening of the endometrium measuring 13 mm. There is no discrete intrauterine gestational sac. The cervix is closed. The ovaries appear normal. The right ovary measures 2.3 x 1.6 x 2.6 cm and the left ovary measures 2.9 x 1.6 x 1.7 cm. There are no suspicious fluid collections or masses within the cul de sac. IMPRESSION: Indeterminate findings which could reflect an extremely early intrauterine versus a completed spontaneous . Would recommend serial quantitative beta HCG measurements and potential follow-up sonogram. Dictated by Willie Horner MD @ 01/31/2021 8:35:[address] Willie Horner @ Jan 31 2021 8:35PM
--- NOTE | 2021-01-31 20:39 | EDM.PDOC ---
ED HPI GENERAL MEDICAL PROBLEM - General Chief Complaint: [employer] Problem Stated Complaint: , BLEEDING Time Seen by Provider: 01/31/21 18:30 Source of Information: Reports: Patient History Limitations: Reports: No Limitations - History of Present Illness INITIAL COMMENTS - FREE TEXT/NARRATIVE: HISTORY AND PHYSICAL: History of present illness: Patient is a G3, P2 25-year-old female who presents emergency room today secondary to vaginal bleeding and abdominal pain in early . Patient states that she had first tested a couple days ago and states she had a positive test. Patient states today she began having vaginal bleeding and states that she has not had heavy bleeding and is mostly just when she wipes that she has had a few amount of clots with wiping. Patient states that she also began having lower abdominal pain this afternoon so decided to come to the emergency room for further evaluation. Patient states that she has not establish care with an [employer] provider yet for this but did follow-up with Dr. Turk for her last 2 deliveries and states that they were uncomplicated and had no issues. Patient denies any other symptoms or concerns. Patient denies fever, chills, chest pain, shortness of breath, or cough. Denies headache, neck stiff ness, change in vision, syncope, or near syncope. Denies nausea, vomiting, diarrhea, constipation, or dysuria. Has not noted any blood in urine or stool. Patient has been eating and drinking appropriately. Review of systems: As per history of present illness and below otherwise all systems reviewed and negative. Past medical history: As per history of present illness and as reviewed below otherwise noncontributory. Surgical history: As per history of present illness and as reviewed below otherwise noncontributory. Social history: See social history for further information Family history: As per history of present illness and as reviewed below otherwise noncontributor y. Physical exam: General: Patient is alert, oriented, and in no acute distress. Patient laying comfortably on exam table. Patient is tachycardic 115's on exam, otherwise vitally stable and reviewed by me. HEENT: Atraumatic, normocephalic, pupils equal and reactive bilaterally, negative for conjunctival pallor or scleral icterus, mucous membranes moist, TMs normal bilaterally, throat clear, neck supple, nontender, trachea midline. No drooling or trismus noted. No meningeal signs. No hot potato voice noted. Lungs: Clear to auscultation, breath sounds equal bilaterally, chest nontender. Heart: S1S2, regular rate and rhythm without overt murmur Abdomen: Soft, nondistended, mild suprapubic tenderness. Negative for masses or hepatosplenomegaly. Negative for costovertebral tenderness. Pelvis: Stable nontender. Genitourinary: Deferred. Rectal: Deferred. Skin: Intact, warm, dry. No lesions or rashes noted. Extremities: Atraumatic, negative for cords or calf pain. Neurovascular unremarkable. Neuro: Awake, alert, oriented. Cranial nerves II through XII unremarkable. Cerebellum unremarkable. Motor and sensory unremarkable throughout. Exam nonfocal. Notes: Patient is a 25-year-old female who presents emergency room today with concern of vaginal bleeding in early . Upon arrival to the ED, patient is tachycardic 115's on exam, otherwise is vitally stable. Patient does have some mild suprapubic tenderness on exam. Will obtain lab work, blood type, hCG quant, and transvaginal ultrasound and reassess patient. CBC unremarkable. CMP mild derangements unremarkable. hCG quant today is 16. Patient's blood type is AB+ and does not require RhoGam. Urinalysis does show 90-100 red blood cells with 0 white blood cells, greater than 80 ketones. Transvaginal ultrasound shows indeterminate findings which could reflect an extremely early intrauterine versus a completed spontaneous . Would recommend serial quantitative beta hCG measurements and potential follow- up sonogram. Upon reevaluation of patient, she remains vitally stable and comfortable throughout stay in ED. Her heart rate did normalize to 80 bpm without intervention. Strict return precautions thoroughly discussed with patient. Discussed importance for follow-up with her [employer] provider. Patient was provided with an outpatient repeat hCG quant prescription. Voices understanding and is agreeable to plan of care. Denies any further questions or concerns at this time. Diagnostics: CBC, CMP, UA, hCG quant, Rh/blood type, transvaginal ultrasound Therapeutics: None Prescription: hCG quant outpatient Rx Impression: Abnormal vaginal bleeding Positive test Plan: 1. Please start and/or continue to take your vitamin with folic acid once daily. Repeat lab work provided to you as discussed. 2. Pelvic rest until cleared by your OBGYN (no tampons, sex, etc...) 3. Tylenol as needed for pain management. This is safe to use in . 4. Follow up with your [employer] as discussed. Return to the ED as needed and as discussed. Definitive disposition and diagnosis as appropriate pending reevaluation and review of above. lower abdomen Pain Score (Numeric/FACES): 6 - Related Data Allergies Allergy/AdvReac Type Severity Reaction Status Date / Time No Known Allergies Allergy Verified 01/31/21 17:38 Home Meds: Home Meds Levothyroxine [Synthroid] 88 mcg PO ACBREAKFAST 09/27/16 [History] Pnv No.95/Ferrous Fum/Folic AC [ Tablet] 1 tab PO DAILY 11/20/17 [History] Past Medical History - Past Health History Medical/Surgical History: Denies Medical/Surgical History HEENT History: Reports: None Cardiovascular History: Reports: Heart Murmur Other Cardiovascular History: As a child but has since resolved. Respiratory History: Reports: None Gastrointestinal History: Reports: None Genitourinary History: Reports: None [employer] History: Reports: Musculoskeletal History: Reports: None Neurological History: Reports: None Psychiatric History: Reports: None Endocrine/Metabolic History: Reports: None Hematologic History: Reports: None Immunologic History: Reports: None Oncologic (Cancer) History: Reports: None Dermatologic History: Reports: None - Infectious Disease History Infectious Disease History: Reports: None - Past Surgical History Head Surgeries/Procedures: Reports: None HEENT Surgical History: Reports: Adenoidectomy, Tonsillectomy Cardiovascular Surgical History: Reports: None Respiratory Surgical History: Reports: None GI Surgical History: Reports: None Female Surgical History: Reports: None Endocrine Surgical History: Reports: None Neurological Surgical History: Reports: None Musculoskeletal Surgical History: Reports: None Oncologic Surgical History: Reports: None Dermatological Surgical History: Reports: None Social & Family History - Family History Family Medical History: No Pertinent Family History OBGYN: Reports: Other (See Below) Other OBGYN Family History: Patient's mother and sister had hysterectomy and sister had cervical cancer. Endocrine/Metabolic: Reports: Diabetes, type II, Other (See Below) Other Endocrine/Metabolic Family History: Mother of patient has unknown thyroid disorder. Oncologic: Reports: Breast, Cervix, Other (See Below) Other Oncologic Family History: Father may have cancer at this time of unknown origin. - Tobacco Use Tobacco Use Status *Q: Never Tobacco User Second Hand Smoke Exposure: No - Caffeine Use Caffeine Use: Reports: None - Recreational Drug Use Recreational Drug Use: No ED ROS GENERAL - Review of Systems Review Of Systems: Comprehensive ROS is negative, except as noted in HPI. ED EXAM, GENERAL - Physical Exam Exam: See Below (See dictation) Course - Vital Signs Last Recorded V/S: Last Vital Signs Temp 96.6 F L 01/31/21 17:35 Pulse 80 01/31/21 20:53 Resp 12 01/31/21 20:53 BP 118/64 01/31/21 20:53 Pulse Ox 98 01/31/21 20:53 - Orders/Labs/Meds Labs: Laboratory Tests 01/31/21 01/31/21 01/31/21 Range/Units 18:30 19:02 19:02 WBC 5.19 (4.0-11.0) K/uL RBC 4.63 (4.30-5.90) M/uL Hgb 13.9 (12.0-16.0) g/dL Hct 40.6 (36.0-46.0) % MCV 87.7 (80.0-98.0) fL MCH 30.0 (27.0-32.0) pg MCHC 34.2 (31.0-37.0) g/dL RDW Std Deviation 41.1 (28.0-62.0) fl RDW Coeff of Damari 13 (11.0-15.0) % Plt Count 212 (150-400) K/uL MPV 10.10 (7.40-12.00) fL Neut % (Auto) 59.5 (48.0-80.0) % Lymph % (Auto) 24.9 (16.0-40.0) % [place] % (Auto) 14.8 (0.0-15.0) % Eos % (Auto) 0.4 (0.0-7.0) % Baso % (Auto) 0.4 (0.0-1.5) % Neut # (Auto) 3.1 (1.4-5.7) K/uL Lymph # (Auto) 1.3 (0.6-2.4) K/uL [place] # (Auto) 0.8 (0.0-0.8) K/uL Eos # (Auto) 0.0 (0.0-0.7) K/uL Baso # (Auto) 0.0 (0.0-0.1) K/uL Nucleated RBC % 0.0 /100WBC Nucleated RBCs # 0 K/uL Sodium 137 (136-145) mmol/L Potassium 3.8 (3.5-5.1) mmol/L Chloride 102 (98-107) mmol/L Carbon Dioxide 23.8 (21.0-32.0) mmol/L BUN 13 (7.0-18.0) mg/dL Creatinine 0.9 (0.6-1.0) mg/dL Est Cr Clr Drug Dosing 86.73 mL/min Estimated GFR (MDRD) > 60.0 ml/min Glucose 82 (74-106) mg/dL Calcium 8.4 L (8.5-10.1) mg/dL Total Bilirubin 0.4 (0.2-1.0) mg/dL AST 25 (15-37) IU/L ALT 34 (14-63) IU/L Alkaline Phosphatase 82 (46-116) U/L Total Protein 7.4 (6.4-8.2) g/dL Albumin 3.9 (3.4-5.0) g/dL Globulin 3.5 (2.6-4.0) g/dL Albumin/Globulin Ratio 1.1 (0.9-1.6) HCG, Quant 16.0 mIU/mL Urine Color YELLOW Urine Appearance CLOUDY Urine pH 6.0 (5.0-8.0) Ur Specific [place] 1.025 (1.001-1.035) Urine Protein NEGATIVE (NEGATIVE) mg/dL Urine Glucose (UA) NEGATIVE (NEGATIVE) mg/dL Urine Ketones >=80 (NEGATIVE) mg/dL Urine Occult Blood LARGE H (NEGATIVE) Urine Nitrite NEGATIVE (NEGATIVE) Urine Bilirubin SMALL H (NEGATIVE) Urine Ictotest NEGATIVE Urine Urobilinogen 0.2 (<2.0) EU/dL Ur Leukocyte Esterase NEGATIVE (NEGATIVE) Urine RBC 90-100 (0-2/HPF) Urine WBC 0-2 (0-5/HPF) Ur Epithelial Cells FEW (NONE-FEW) Urine Bacteria RARE (NEGATIVE) Blood Type 01/31/21 Range/Units 19:02 WBC (4.0-11.0) K/uL RBC (4.30-5.90) M/uL Hgb (12.0-16.0) g/dL Hct (36.0-46.0) % MCV (80.0-98.0) fL MCH (27.0-32.0) pg MCHC (31.0-37.0) g/dL RDW Std Deviation (28.0-62.0) fl RDW Coeff of Damari (11.0-15.0) % Plt Count (150-400) K/uL MPV (7.40-12.00) fL Neut % (Auto) (48.0-80.0) % Lymph % (Auto) (16.0-40.0) % [place] % (Auto) (0.0-15.0) % Eos % (Auto) (0.0-7.0) % Baso % (Auto) (0.0-1.5) % Neut # (Auto) (1.4-5.7) K/uL Lymph # (Auto) (0.6-2.4) K/uL [place] # (Auto) (0.0-0.8) K/uL Eos # (Auto) (0.0-0.7) K/uL Baso # (Auto) (0.0-0.1) K/uL Nucleated RBC % /100WBC Nucleated RBCs # K/uL Sodium (136-145) mmol/L Potassium (3.5-5.1) mmol/L Chloride (98-107) mmol/L Carbon Dioxide (21.0-32.0) mmol/L BUN (7.0-18.0) mg/dL Creatinine (0.6-1.0) mg/dL Est Cr Clr Drug Dosing mL/min Estimated GFR (MDRD) ml/min Glucose (74-106) mg/dL Calcium (8.5-10.1) mg/dL Total Bilirubin (0.2-1.0) mg/dL AST (15-37) IU/L ALT (14-63) IU/L Alkaline Phosphatase (46-116) U/L Total Protein (6.4-8.2) g/dL Albumin (3.4-5.0) g/dL Globulin (2.6-4.0) g/dL Albumin/Globulin Ratio (0.9-1.6) HCG, Quant mIU/mL Urine Color Urine Appearance Urine pH (5.0-8.0) Ur Specific [place] (1.001-1.035) Urine Protein (NEGATIVE) mg/dL Urine Glucose (UA) (NEGATIVE) mg/dL Urine Ketones (NEGATIVE) mg/dL Urine Occult Blood (NEGATIVE) Urine Nitrite (NEGATIVE) Urine Bilirubin (NEGATIVE) Urine Ictotest Urine Urobilinogen (<2.0) EU/dL Ur Leukocyte Esterase (NEGATIVE) Urine RBC (0-2/HPF) Urine WBC (0-5/HPF) Ur Epithelial Cells (NONE-FEW) Urine Bacteria (NEGATIVE) Blood Type AB POSITIVE Departure - Departure Time of Disposition: 20:38 Disposition: Home, Self-Care 01 Clinical Impression: Abnormal vaginal bleeding, Positive test - Discharge Information Referrals: Caren Humphrey PA [Primary Care Provider] - Forms: ED Department Discharge Additional Instructions: The following information is given to patients seen in the emergency department who are being discharged to home. This information is to outline your options for follow-up care. We provide all patients seen in our emergency department with a follow-up referral. The need for follow-up, as well as the timing and circumstances, are variable depending upon the specifics of your emergency department visit. If you don't have a primary care physician on staff, we will provide you with a referral. We always advise you to contact your personal physician following an emergency department visit to inform them of the circumstance of the visit and for follow-up with them and/or the need for any referrals to a consulting specialist. The emergency department will also refer you to a specialist when appropriate. This referral assures that you have the opportunity for follow-up care with a specialist. All of these measure are taken in an effort to provide you with optimal care, which includes your follow-up. Under all circumstances we always encourage you to contact your private physician who remains a resource for coordinating your care. When calling for follow-up care, please make the office aware that this follow-up is from your recent emergency room visit. If for any reason you are refused follow-up, please contact the [facility] Department at and asked to speak to the emergency department charge nurse. [facility] [address] [place] [id number] [facility] [address] [place] [address] [facility] [address] [place] [address] 1. Please start and/or continue to take your vitamin with folic acid once daily. Repeat lab work provided to you as discussed. 2. Pelvic rest until cleared by your OBGYN (no tampons, sex, etc...) 3. Tylenol as needed for pain management. This is safe to use in . 4. Follow up with your [employer] as discussed. Return to the ED as needed and as discussed. Sepsis Event Note (ED) - Evaluation Sepsis Screening Result: No Definite Risk - Focused Exam Vital Signs: Vital Signs Temp Pulse Resp BP Pulse Ox 01/31/21 20:53 80 12 118/64 98 01/31/21 18:33 106 H 18 122/80 99 01/31/21 17:35 96.6 F L 116 H 18 132/90 98
[2021-01-31 20:53] VITALS: BP 118/64; PULSE 80
== END 2021-01-31 20:54 | disposition home or self-care (01) ==
LOC: MW.ED 16:40
DX: O20.9 Hemorrhage in early pregnancy, unspecified (principal); Z79.899 Other long term (current) drug therapy; Z3A.01 Less than 8 weeks gestation of pregnancy
CPT/HCPCS: 36415; 76801; 76801-26; 80053; 81001; 84702; 85025; 86900; 86901; 99284-25

== ENCOUNTER 2022-01-24 08:32 | Inpatient (IN) | payer OTHER ==
[2022-01-24] MEDS ORDERED: Carboprost Tromethamine 250 MCG/1 ML Amp IM PRN (11:10)
[2022-01-24] MEDS ORDERED: Sodium Chloride 0.9% 2.5 ML Syringe FLUSH PRN (11:10)
[2022-01-24] MEDS ORDERED: Sodium Chloride 0.9% 20 ML SDV IV PRN (11:10)
[2022-01-24] MEDS ORDERED: Lidocaine 1% 50 ML MDV INJECT PRN (11:10)
[2022-01-24] MEDS ORDERED: Butorphanol 1 MG/ML SDV IVPUSH PRN (11:10)
[2022-01-24] MEDS ORDERED: Ondansetron 4 MG/2 ML SDV IVPUSH PRN (11:10)
[2022-01-24] MEDS ORDERED: Methylergonovine 0.2 MG/1 ML Amp IM PRN ×2 (11:10→17:19)
[2022-01-24] MEDS ORDERED: Misoprostol 200 MCG Tab PO PRN (11:10)
[2022-01-24] MEDS ORDERED: Water For Irrigation,Sterile 1,000 ML Container IRR PRN (11:10)
[2022-01-24] MEDS ORDERED: Sodium Chloride 0.9% 10 ML Syringe FLUSH PRN (11:10)
[2022-01-24] MEDS ORDERED: Tranexamic Acid 1,000 MG in Sodium Chloride 0.9% 100 ML IV PRN ×2 (11:10→17:19)
[2022-01-24] MEDS ORDERED: Oxytocin/0.9 % Sodium Chloride 30 UNIT/500 ML BAG IV SCH (11:15)
[2022-01-24] MEDS: Lactated Ringers 1,000 ML IV SCH ×3 (11:21→13:30)
[2022-01-24] MEDS ORDERED: Ropivacaine/PF 400 MG/200 ML PCA ONE (12:21)
[2022-01-24] MEDS ORDERED: Phenylephrine HCl In 0.9% NaCl 1 MG/10 ML Vial ONE (12:21)
[2022-01-24] MEDS ORDERED: ePHEDrine 50 MG/ML SDV IVPUSH PRN (12:33)
[2022-01-24] MEDS ORDERED: Ropivacaine HCl/PF 400 MG in Premix Bag 1 BAG EPIDUR SCH (12:45)
[2022-01-24] MEDS ORDERED: Phenylephrine HCl In 0.9% NaCl 1 MG/10 ML Vial IVPUSH SCH (12:45)
[2022-01-24] MEDS ORDERED: Bisacodyl 10 MG Supp RECTAL PRN (17:19)
[2022-01-24] MEDS ORDERED: Lanolin 100% Cream 7 GM Tube TOP PRN (17:19)
[2022-01-24] MEDS ORDERED: Acetaminophen 500 MG Tab PO PRN (17:19)
[2022-01-24] MEDS ORDERED: Docusate Sodium 100 MG Cap PO PRN (17:19)
[2022-01-24] MEDS ORDERED: Ibuprofen 400 MG Tab PO PRN (17:19)
[2022-01-24] MEDS ORDERED: Benzocaine/Menthol 20%-0.5% Spray 78 GM Cannister TOP PRN (17:19)
[2022-01-24] MEDS ORDERED: Witch Hazel Medicated Pads 40/Jar TOP PRN (17:19)
[2022-01-24] MEDS: Ibuprofen 800 MG Tab PO PRN (23:05)
[2022-01-25] MEDS: Acetaminophen 500 MG Tab PO PRN ×2 (04:00→12:23)
[2022-01-25] MEDS: Levothyroxine 75 MCG Tab PO SCH (07:47)
[2022-01-25] MEDS: Ibuprofen 800 MG Tab PO PRN ×2 (07:47→16:06)
[2022-01-25] MEDS: Prenatal Multivitamin with Calcium/Folic Acid/Iron Tab PO SCH (08:35)
[2022-01-26] MEDS: Ibuprofen 800 MG Tab PO PRN ×2 (01:41→13:16)
[2022-01-26] MEDS: Levothyroxine 75 MCG Tab PO SCH (06:52)
[2022-01-26] MEDS: Prenatal Multivitamin with Calcium/Folic Acid/Iron Tab PO SCH (08:08)
[2022-01-26] MEDS: Acetaminophen 500 MG Tab PO PRN (08:09)
[2022-01-26 16:41] VITALS: BP 119/69; PULSE 63
== END 2022-01-26 17:10 | disposition home or self-care (01) | DRG 806 ==
LOC: MW.OBCHECK 08:32 → MW.OB 08:33 → MW.OBCHECK 16:30 → MW.OB 16:30 → OBSVTOIN 16:51 → MW.OB 21:08
PROVIDERS: ADMIT Obstetrics & Gynecology; ATTEND Obstetrics & Gynecology
PROC: 10E0XZZ Delivery of Products of Conception, External Approach (ICD-10-PCS; principal; 2022-01-24)
PROC: 10907ZC Drainage of Amniotic Fluid, Therapeutic from Products of Conception, Via Natural or Artificial Opening (ICD-10-PCS; 2022-01-24)
PROC: 3E0R3BZ Introduction of Anesthetic Agent into Spinal Canal, Percutaneous Approach (ICD-10-PCS; 2022-01-24)
PROC: 00HU33Z Insertion of Infusion Device into Spinal Canal, Percutaneous Approach (ICD-10-PCS; 2022-01-24)
DX: O60.14X0 Preterm labor third trimester with preterm delivery third trimester, not applicable or unspecified (principal); O26.613 Liver and biliary tract disorders in pregnancy, third trimester; Z37.0 Single live birth; K80.50 Calculus of bile duct without cholangitis or cholecystitis without obstruction; Z20.822 Contact with and (suspected) exposure to COVID-19; Z3A.36 36 weeks gestation of pregnancy
CPT/HCPCS: 01967; 36415; 51702; 59025; 59409; 81003; 82803; 85014; 85018; 85027; 86592; 86850; 86900; 86901; A9270-GY; J2590; J2795; J7120; U0002

== ENCOUNTER 2022-03-23 17:52 | Emergency (ER) | payer OTHER ==
[2022-03-23] MEDS ORDERED: Acetaminophen/HYDROcodone 325-5 MG Tab PO ONE (20:08)
== END 2022-03-23 21:07 ==
LOC: MW.ED 17:52
DX: K80.20 Calculus of gallbladder without cholecystitis without obstruction (principal)
CPT/HCPCS: 99283; A9270

== ENCOUNTER 2022-03-31 11:12 | Emergency (ER) | payer OTHER ==
[2022-03-31 12:25] LABS: CORONAVIRUS COVID-19 NAA NEGATIVE (NEGATIVE); INFLUENZA A NAA NEGATIVE (NEGATIVE); INFLUENZA B NAA NEGATIVE (NEGATIVE)
[2022-03-31 13:15] VITALS: BP 105/62; PULSE 105
== END 2022-03-31 13:09 | disposition home or self-care (01) ==
LOC: MW.ED 11:12
DX: J02.9 Acute pharyngitis, unspecified (principal); Z20.822 Contact with and (suspected) exposure to COVID-19
CPT/HCPCS: 0240U; 81001; 87086; 99284; 99283